=== PATIENT | female | born 1945 | race Caucasian/White ===

== ENCOUNTER → 2017-03-27 12:55 | Outpatient (CLI) | payer MEDICARE, OTHER, SELFPAY ==
--- NOTE | 2017-03-27 13:05 | CT_ITS ---
STUDY: CT TEMPORAL BONES WITHOUT CONTRAST - ATTN: I.A.C. S REASON FOR EXAM: Female, 71 years old. Dizzy. Radical left mastoidectomy. RADIATION DOSAGE (If Supplied By Facility): CTDIvol = ( 82.28 ) mGy, DLP = ( 873.63 ) mGycm TECHNIQUE: The patient was scanned in a multi detector CT scanner. Transaxial imaging was performed without the administration of intravenous contrast material. Sagittal and coronal images were reconstructed. Individualized dose optimization techniques were used for this CT. COMPARISON: None. FINDINGS: RIGHT TEMPORAL BONE Normal right internal auditory canal. Normal visualized ossicles and tympanic cavity. Normal right cochlea and semicircular canals. Normal vestibular aqueduct. Normal right petrous carotid artery. Normal right jugular fossa. Normal right mastoid air cells. Normal right petrous apex. LEFT TEMPORAL BONE Normal left internal auditory canal. Postsurgical absence of the large portion of the middle ear ossicles. There is a small residual middle ear ossicles overlying the oval window and there is soft tissue density underneath the middle ear ossicle. Whether this is residual cholesteatoma or not is difficult to determine. There is a large left mastoidectomy defect from subtotal resection. The sigmoid sinus and jugular bulb are intact. There is dense sclerosis of the residual left temporal mastoid bone with contraction. Normal left cochlea and semicircular canals. Normal vestibular aqueduct. Normal left petrous carotid artery. Normal left jugular fossa. Normal left mastoid air cells. Normal left petrous apex. CT/Orb Sella Post Fossa Ear w/o IMPRESSION: 1. Subtotal left temporal mastoidectomy with very minimal residual left middle ear ossicles overlying the oval window and there is soft tissue underneath the small residual left middle ear ossicles. This soft tissue density is uncertain for cholesteatoma. Prior films will help determine interval changes if available. 2. 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 3. Normal CT of the right temporal bone, both internal auditory canals and both osseous labyrinths. Electronically Signed: Mata Blandon MD at 12:32 EST , Service support ,
== END ==
PROVIDERS: Visit Provider Otolaryngology Otolaryngology/Facial Plastic Surgery
DX: R42 Dizziness and giddiness (principal); Z98.890 Other specified postprocedural states
CPT/HCPCS: 70480

== ENCOUNTER → 2017-07-23 15:07 | Outpatient (CLI) | payer MEDICARE, OTHER, SELFPAY ==
--- NOTE | 2017-07-23 15:12 | MRI_ITS ---
STUDY: MRI BRAIN WITHOUT CONTRAST REASON FOR EXAM: Female, 72 years old. Dizziness and imbalance TECHNIQUE: Standardized multiplanar fat and water weighted pulse sequences were obtained. COMPARISON: 05/26/2015 FINDINGS: Normal size of the ventricles and extra-axial spaces for the patient's age. Mild microangiopathic white matter disease. Normal bilateral basal ganglia. Normal thalami. There is no extra-axial fluid accumulation. Normal flow voids within the major intracranial circulation suggesting patency by spin echo criteria. Normal sella turcica, pituitary gland, infundibular stalk, optic chiasm and hypothalamus. Normal tectal plate and pineal gland. Normal midbrain, santi and medulla. Normal cerebellum. Normal basal cisterns. Normal bilateral temporal bones. Normal bilateral internal auditory canals. No demonstrated orbital abnormality, within the constraints of a routine brain study. Normal visualized paranasal sinuses. Hyperostosis frontalis interna. Normal visualized soft tissue structures. Normal visualized upper cervical spine. MRI/Brain without Contrast IMPRESSION: Mild microangiopathic white matter disease. No evidence of infarct or hemorrhage. Electronically Signed: Lito Restrepo MD at 2:35 EDT Tel , Service support ,
== END ==
PROVIDERS: Visit Provider Psychiatry & Neurology Neurology
DX: R42 Dizziness and giddiness (principal)
CPT/HCPCS: 70551

== ENCOUNTER → 2017-10-02 07:44 | Outpatient (CLI) | payer MEDICARE, OTHER, SELFPAY ==
--- NOTE | 2017-10-02 10:31 | NEURO ---
[facility] and/or [facility] Patient Report Ordering Doctor: Debbie Bai DATE OF SERVICE: 10/02/17 This is a bilateral lower extremity nerve conduction study and a left lower extremity needle electromyography performed on this 72-year-old female with a history of balance issues. She also has had a left total knee replacement. She denies pain or paresthesias. There is no neck or back pain. Bilateral lower extremity sensory and motor nerve conduction studies performed. The sural sensory responses are intact bilaterally. There is a mild prolongation of the distal latency on the left side however. No motor and tibial motor amplitudes distal latencies and conduction velocities are preserved. The F-wave latencies from the tibial and common peroneal nerves bilaterally are normal and the H reflex is from the tibial nerves bilaterally are low amplitude. Left lower extremity needle electromyography is performed. Muscles evaluated included the extensor digitorum brevis, abductor hallucis, medial gastrocnemius, anterior tibialis, vastus medialis, and vastus lateralis muscles. All muscles demonstrated normal insertional activity with absence of pathologic spontaneous activity. Motor unit potential recruitment pattern and amplitude was normal in all muscles tested. Impression: This is a normal electrophysiologic study of the lower extremities.
== END ==
PROVIDERS: Visit Provider Psychiatry & Neurology Neurology
DX: R20.2 Paresthesia of skin (principal)
CPT/HCPCS: 95886; 95910

== ENCOUNTER → 2019-10-23 08:53 | Outpatient (CLI) | payer MEDICARE, OTHER, SELFPAY ==
[2019-10-23 09:26] LABS: CREATININE FINGERSTICK 0.7 mg/dL (0.55-1.02); EGFR FINGERSTICK > 60.0000 mL/min (>60)
--- NOTE | 2019-10-23 10:00 | MRI_ITS ---
STUDY: MRI BRAIN WITH AND WITHOUT CONTRAST (ATTENTION INTERNAL AUDITORY CANALS - I.A.C.''s) REASON FOR EXAM: Female, 74 years old. Dizziness, L HEARING LOSS X 3 MONTHS TECHNIQUE: Standardized multiplanar fat and water weighted pulse sequences were obtained. 22 mL of IV DOTAREM was administered for the contrast portion of the examination. COMPARISON: MRI brain with and without contrast 05/26/2015. FINDINGS: No restricted diffusion throughout the brain parenchyma. Normal bilateral temporal bones. Normal bilateral internal auditory canals. There is no demonstrated intracanalicular or cisternal vestibular schwannoma (acoustic neuroma). There is no enhancement of the bilateral VIIth or VIIIth cranial nerves. Normal bilateral cochlea, vestibules and semicircular canals. Normal size of the ventricles and extra-axial spaces for the patient''s age. Small subcortical white matter T2 FLAIR hyperintensity foci in the cerebral hemispheres, right side more than left. They are presumably secondary to microvascular disease. Normal bilateral basal ganglia. Normal thalami. Normal flow voids within the major intracranial circulation suggesting patency by spin echo criteria. Normal venous enhancement. There is no enhancing intra-axial or extra-axial abnormality. There is no extra-axial fluid accumulation. Normal sella turcica, pituitary gland, infundibular stalk, optic chiasm and hypothalamus. Normal tectal plate and pineal gland. Normal midbrain, santi and medulla. Normal cerebellum. Normal basal cisterns. No demonstrated orbital abnormality, within the constraints of a routine brain study. Normal visualized paranasal sinuses. Normal calvarium and skull base. Normal visualized soft tissue structures. Normal visualized upper cervical spine. MRI/Brain W/WO Contrast IMPRESSION: 1. Normal unenhanced and enhanced MRI of the bilateral internal auditory canals (I.A.C''s). 2. Small chronic subcortical white matter ischemic changes in both cerebral hemispheres. 3. Mild increase in chronic subcortical white matter ischemic changes in both cerebral hemispheres when compared to 05/26/2015. Electronically Signed: Mata Blandon MD at 15:38 EDT , Service support ,
== END ==
PROVIDERS: Referring Provider Otolaryngology; Visit Provider Otolaryngology
DX: R42 Dizziness and giddiness (principal)
CPT/HCPCS: 70553; A9575